=== PATIENT | male | born 1965 | race Caucasian/White ===

== ENCOUNTER 2018-09-07 21:59 | Emergency (ER) | payer MEDICAID, OTHER ==
[~2018-09-07] VITALS: Ht 188 cm; Wt 118.2 kg
[~2018-09-07 21:59] MED LIST: DOCU-28 PO; LISI40TA4 PO; SIMV40TA4 PO
[2018-09-07 22:02] VITALS: BP 156/100
[2018-09-07] MEDS ORDERED: HYDR-4383 PO (22:33)
[2018-09-07] MEDS ORDERED: PENI250T2 PO (22:33)
[2018-09-07] MEDS ORDERED: HYDROcodone/acetaminophen 5mg/325mg tablet PO ONE (22:35)
== END 2018-09-07 22:44 | disposition home or self-care (01) ==
LOC: ER 21:59
DX: K08.89 Other specified disorders of teeth and supporting structures (principal); E78.00 Pure hypercholesterolemia, unspecified; I10 Essential (primary) hypertension; Z79.899 Other long term (current) drug therapy
CPT/HCPCS: 99283

== ENCOUNTER 2018-10-01 11:15 | Emergency (ER) | payer MEDICAID, OTHER ==
[~2018-10-01] VITALS: Ht 188 cm; Wt 116.2 kg
[~2018-10-01 11:15] MED LIST changes: +HYDR-4383 PO
[2018-10-01] MEDS ORDERED: insulin regular, human 10 units/0.1 ml syringe IV ONE (11:40)
[2018-10-01] MEDS ORDERED: normal saline 1000ML IV soln IVB ONE (11:40)
[2018-10-01 12:21] LABS: BASOPHILS % (AUTO) 0.5 % (0-1); EOSINOPHILS # (AUTO) 0.1 X10'3 (0-0.9); EOSINOPHILS % (AUTO) 1.8 % (0-6); HEMATOCRIT 46.2 % (42.0-52.0); HEMOGLOBIN 15.8 g/dl (14.0-17.9); LYMPHOCYTES # (AUTO) 1.8 X10'3 (1.1-4.8); LYMPHOCYTES % (AUTO) 23.8 % (21-51); MEAN CORPUSCULAR HEMOGLOBIN 28.6 PG (27.0-31.0); MEAN CORPUSCULAR HGB CONC 34.2 g/dL (33.0-36.5); MEAN CORPUSCULAR VOLUME 83.8 FL (78-98); MEAN PLATELET VOLUME 10.4 FL (7.4-10.4); MONOCYTES # (AUTO) 0.5 X10'3 (0-0.9); MONOCYTES % (AUTO) 7.2 % (2-12); NEUTROPHILS # (AUTO) 4.9 X10'3 (1.8-7.7); NEUTROPHILS % (AUTO) 66.7 % (42-75); PLATELET COUNT 180 X10'3 (140-440); RED BLOOD COUNT 5.51 X10'6 (4.70-6.10); RED CELL DISTRIBUTION WIDTH 13.4 % (11.5-14.5); WHITE BLOOD COUNT 7.4 X10'3 (4.5-11.0)
[2018-10-01 12:28] LABS: CLARITY,URINE CLEAR (Clear); COLOR,URINE YELLOW (Yellow); GLUCOSE, URINE >=1000 mg/dl (Neg); KETONES,URINE 15 mg/dl (Neg); LEUKOCYTE ESTERASE ,URINE NEGATIVE (Neg); NITRITES, URINE NEGATIVE (Neg); OCCULT BLOOD,URINE NEGATIVE (Neg); PH,URINE 5.5 (4.8-8.0); PROTEIN,URINE NEGATIVE (Neg); UROBILINOGEN,URINE 0.2 E.U/dL (0.2-1.0)
[2018-10-01 12:29] LABS: UA COLLECTION TYPE URINAL
[2018-10-01 12:39] LABS: BACTERIA,URINE FEW /HPF (Neg); RBC,URINE 0-2 /HPF (0-2); SQUAMOUS EPITHELIAL CELL,UR FEW /LPF (FEW); WBC,URINE 0-4 /HPF (0-4)
[2018-10-01 12:43] LABS: ALANINE AMINOTRANSFERASE 24 U/L (12-78); ALBUMIN 4.4 G/DL (3.4-5.0); ALBUMIN/GLOBULIN RATIO 1.2 (1.1-1.5); ALKALINE PHOSPHATASE 113 IU/L (46-116); ANION GAP 12 (8-16); ASPARTATE AMINO TRANSFERASE 20 U/L (10-37); BILIRUBIN,TOTAL 0.8 MG/DL (0.1-1.0); BLOOD UREA NITROGEN 21 MG/DL (7-18); BUN/CREATININE RATIO 16.3 (5.4-32.0); CALCIUM 9.8 MG/DL (8.5-10.1); CHLORIDE 94 MMOL/L (99-107); CREATININE 1.29 MG/DL (0.60-1.10); LIPASE 146 U/L (73-393); MAGNESIUM 1.8 MG/DL (1.5-2.4); POTASSIUM 5.4 MMOL/L (3.5-5.1); SODIUM 130 MMOL/L (135-145); TOTAL CARBON DIOXIDE 24.4 MMOL/L (24-32); TROPONIN I < 0.04 NG/ML (0.0-0.05); eGFR 59 ML/MIN
[2018-10-01 12:46] LABS: GLUCOSE 562 MG/DL (70-104)
[2018-10-01] MEDS ORDERED: GLIM4TAB79 PO (13:15)
[2018-10-01 13:28] VITALS: BP 136/79
== END 2018-10-01 13:29 | disposition home or self-care (01) ==
LOC: ER 11:16
DX: E11.65 Type 2 diabetes mellitus with hyperglycemia (principal); I10 Essential (primary) hypertension; E78.00 Pure hypercholesterolemia, unspecified
CPT/HCPCS: 36415; 80053; 81001; 82948; 83605; 83690; 83735; 84484; 85025; 93005; 96361; 96374; 99284; J1815; J7030